=== PATIENT | male | born 1995 | race African-American/Black ===

== ENCOUNTER 2023-11-28 10:19 | Emergency (ER) | payer SELFPAY ==
[~2023-11-28] VITALS: Ht 175.3 cm; Wt 70.0 kg
[2023-11-28 10:25] VITALS: O2SAT 100
[2023-11-28] MEDS: HYDROCODONE/ACETAMINOPHEN 10/325MG TABLET PO ONE (10:58)
[2023-11-28 11:29] VITALS: TEMP 98.2
[2023-11-28] MEDS ORDERED: IBUP-2030 MT (12:33)
[2023-11-28] MEDS: IBUPROFEN 800MG TABLET PO ONE (12:43)
[2023-11-28 13:03] VITALS: BP 113/69; PULSE 63; RESP 16
== END 2023-11-28 13:03 | disposition home or self-care (01) ==
LOC: ER 10:19
DX: S16.1XXA Strain of muscle, fascia and tendon at neck level, initial encounter (principal); S40.011A Contusion of right shoulder, initial encounter; M24.551 Contracture, right hip; F12.10 Cannabis abuse, uncomplicated; W18.39XA Other fall on same level, initial encounter; Y93.89 Activity, other specified; Y92.89 Other specified places as the place of occurrence of the external cause; Y99.8 Other external cause status
CPT/HCPCS: 73502; 73030; 70450; 72125; 99285; Z7610 ×2